=== PATIENT | female | born 1955 | race Caucasian/White ===

== ENCOUNTER 2021-12-06 08:12 | Outpatient (CLI) | payer MEDICARE, OTHER | END 2021-12-06 23:59 | disposition home or self-care (01) | LOC: LAB 08:12 | PROVIDERS: ATTEND Surgery | DX: Z01.812 Encounter for preprocedural laboratory examination (principal); Z20.822 Contact with and (suspected) exposure to COVID-19 ==

== ENCOUNTER 2021-12-09 07:58 | Day surgery (SDC) | payer MEDICARE, OTHER ==
[2021-12-09 08:24] LABS: HEMATOCRIT 38.4 % (31.2-41.9); MEAN CORPUSCULAR HEMOGLOBIN 30.3 uug (24.7-32.8); PLATELET COUNT (AUTO) 264 K/uL (179-408)
[2021-12-09 08:37] LABS: *BILIRUBIN,URIN NEGATIVE (NEGATIVE); *BLOOD, URINE NEGATIVE (NEGATIVE); *CLARITY,URINE CLEAR (CLEAR); *COLOR,URINE YELLOW (YELLOW); *KETONES,URINE NEGATIVE (NEGATIVE); *UROBILINOGEN,URINE 0.2 E.U./dl (NORMAL); LEUKOCYTE ESTERASE ,URINE NEGATIVE (NEGATIVE); NITRITE, URINE NEGATIVE (NEGATIVE); PH,URINE 5.5 (5.0-8.0); UGLUCOSE NEGATIVE (NEGATIVE)
[2021-12-09 08:39] LABS: CREATININE 0.8 mg/dL (0.6-1.3); POTASSIUM 3.8 mmol/L (3.5-5.1)
[2021-12-09] MEDS ORDERED: ACETAMINOPHEN ES 500 MG TABLET ONE (09:49)
[2021-12-09] MEDS ORDERED: LIDOCAINE-MPF 2% 5 ML VIAL ONE (10:10)
[2021-12-09] MEDS ORDERED: PROPOFOL 200 MG/20 ML BOTTLE ONE (10:10)
== END 2021-12-09 10:20 | disposition home or self-care (01) ==
LOC: DS 07:58
PROVIDERS: ATTEND Surgery
DX: Z12.11 Encounter for screening for malignant neoplasm of colon (principal); R10.13 Epigastric pain; K44.9 Diaphragmatic hernia without obstruction or gangrene; K63.89 Other specified diseases of intestine; K31.89 Other diseases of stomach and duodenum; K64.8 Other hemorrhoids; K63.5 Polyp of colon; K21.00 Gastro-esophageal reflux disease with esophagitis, without bleeding; K58.8 Other irritable bowel syndrome; K31.9 Disease of stomach and duodenum, unspecified; I10 Essential (primary) hypertension; M19.90 Unspecified osteoarthritis, unspecified site; Z79.899 Other long term (current) drug therapy; Z98.890 Other specified postprocedural states
CPT/HCPCS: 36415; 71045; 85025; 85730; 88313-TC; 88342; A9150; J3490

== ENCOUNTER 2022-01-27 07:26 | Outpatient (CLI) | payer MEDICARE, OTHER | END 2022-01-27 23:59 | disposition home or self-care (01) | LOC: LAB 07:26 | PROVIDERS: ATTEND Surgery | DX: Z01.812 Encounter for preprocedural laboratory examination (principal); Z20.822 Contact with and (suspected) exposure to COVID-19 ==

== ENCOUNTER 2022-01-29 08:34 | Day surgery (SDC) | payer MEDICARE, OTHER ==
[~2022-01-29 08:34] MED LIST: BUPIVACAINE/EPI PF 0.25% 10 ML VIAL IJ ONE; CEFAZOLIN 2 G in IV DEXTROSE 5% 100 ML IV ONE; LIDOCAINE HCL 1% 20 ML VIAL ONE
[2022-01-29] MEDS ORDERED: IBUPROFEN 800 MG TABLET PO ONE (08:35)
[2022-01-29] MEDS ORDERED: PROCHLORPERAZINE MALEATE 25 MG SUPP.RECT RC ONE (08:35)
[2022-01-29] MEDS ORDERED: GABAPENTIN 300 MG CAPSULE PO ONE (08:35)
[2022-01-29 09:03] LABS: HEMATOCRIT 36.8 % (31.2-41.9); MEAN CORPUSCULAR HEMOGLOBIN 30.7 uug (24.7-32.8); MEAN CORPUSCULAR VOLUME 90.1 fL (75.5-95.3); PLATELET COUNT (AUTO) 257 K/uL (179-408)
[2022-01-29 09:21] LABS: BILIRUBIN,TOTAL 0.4 mg/dL (0.2-1.0); CREATININE 0.8 mg/dL (0.6-1.3); POTASSIUM 4.1 mmol/L (3.5-5.1); TOTAL PROTEIN, SERUM 7.4 g/dL (6.4-8.2)
[2022-01-29] MEDS ORDERED: FENTANYL CITRATE 100 MCG/2 ML AMPUL ONE (09:23)
[2022-01-29] MEDS ORDERED: HYDROMORPHONE 2 MG/1 ML DISP.SYRIN ONE (09:23)
[2022-01-29] MEDS ORDERED: FAMOTIDINE. 20 MG/2 ML VIAL IV ONE (09:24)
[2022-01-29] MEDS ORDERED: ROCURONIUM BROMIDE 50 MG/5 ML VIAL ONE (09:24)
[2022-01-29] MEDS ORDERED: MIDAZOLAM HCL 2 MG/2 ML VIAL ONE (09:24)
[2022-01-29 09:31] LABS: *BILIRUBIN,URIN NEGATIVE (NEGATIVE); *BLOOD, URINE NEGATIVE (NEGATIVE); *CLARITY,URINE CLEAR (CLEAR); *COLOR,URINE DARK YELLOW (YELLOW); *KETONES,URINE NEGATIVE (NEGATIVE); *UROBILINOGEN,URINE 0.2 E.U./dl (NORMAL); LEUKOCYTE ESTERASE ,URINE NEGATIVE (NEGATIVE); NITRITE, URINE NEGATIVE (NEGATIVE); PH,URINE 5.5 (5.0-8.0); UGLUCOSE NEGATIVE (NEGATIVE)
[2022-01-29 10:15] LABS: RBC,URINE 0-3 /HPF (0-3)
[2022-01-29 10:16] LABS: BACTERIA,URINE NONE SEEN /HPF (NONE SEEN); SQUAMOUS EPITHELIAL CELL,UR MODERATE /HPF (NONE SEEN); WBC,URINE 0-3 /HPF (0-3)
[2022-01-29] MEDS ORDERED: HYDROMORPHONE 1 MG/1 ML DISP.SYRIN ONE (11:15)
[2022-01-29] MEDS ORDERED: ONDANSETRON 4 MG/2 ML VIAL ONE ×2 (11:36→12:10)
[2022-01-29] MEDS ORDERED: PROPOFOL 200 MG/20 ML BOTTLE ONE (11:36)
[2022-01-29] MEDS ORDERED: NEOSTIGMINE METHYLSULFATE 10 MG/10 ML VIAL ONE (11:36)
[2022-01-29] MEDS ORDERED: LIDOCAINE-MPF 2% 5 ML VIAL ONE (11:36)
[2022-01-29] MEDS ORDERED: DEXAMETHASONE SOD PHOSPHATE 4 MG INJ ONE (11:36)
[2022-01-29] MEDS ORDERED: METOCLOPRAMIDE HCL 10 MG/2 ML VIAL ONE ×2 (11:36→12:53)
[2022-01-29] MEDS ORDERED: GLYCOPYRROLATE 0.2 MG/ML VIAL ONE (11:36)
[2022-01-29] MEDS ORDERED: ACETAMINOPHEN 325 MG TABLET ONE (14:58)
== END 2022-01-29 17:55 | disposition home or self-care (01) ==
LOC: DS 08:34
PROVIDERS: ATTEND Surgery
DX: K80.10 Calculus of gallbladder with chronic cholecystitis without obstruction (principal); E78.5 Hyperlipidemia, unspecified; M19.90 Unspecified osteoarthritis, unspecified site; K21.9 Gastro-esophageal reflux disease without esophagitis; Z79.899 Other long term (current) drug therapy; Z98.890 Other specified postprocedural states; Z79.01 Long term (current) use of anticoagulants
CPT/HCPCS: 47562; 80053; 85025; 85730; 81001; 36415; J3490 ×6; J0690; J1100; J2765 ×2; J2250; J2405 ×2; J3010; J1170 ×2; J7120; A4663